=== PATIENT | female | born 1940 | race Caucasian/White ===

== ENCOUNTER 2016-12-20 14:43 | Emergency (ER) | payer OTHER ==
[2016-12-20 14:51] VITALS: BP 145/78; TEMP 97.6; BMI 20.3
--- NOTE | 2016-12-20 15:09 | ED.PDOC ---
General ED Provider: Dr. MARSHALL CLAIRE Chief Complaint: Bite Stated Complaint: bite Time Seen by Physician: 14:44 Mode of Arrival: Walk-In Information Source: Patient Exam Limitations: No limitations Primary Care Provider: LATONIA DE SOUZA Nursing and Triage Documentation Reviewed and Agree: Yes Trauma/Injury Complaint Exam - Bite Injury Complaint/Exam Location of Bite: right index Bite Occured: home Symptoms Are: Still present Type of Bite: Reports: Human Initial Severity: Mild Current Severity: None Aggravating: Reports: None Alleviating: Reports: None Associated Signs and Symptoms: Denies: Fever, Erythema, Drainage, Swelling, Lymphadenopathy, Numbness, Tingling, Limited ROM Review of Systems - Review Of Systems Constitutional: Reports: No symptoms Eyes: Reports: No symptoms Ears, Nose, Mouth, Throat: Reports: No symptoms Respiratory: Reports: No symptoms Cardiac: Reports: No symptoms GI: Reports: No symptoms : Reports: No symptoms Musculoskeletal: Reports: No symptoms Skin: Reports: No symptoms Neurological: Reports: No symptoms Endocrine: Reports: No symptoms Hematologic/Lymphatic: Reports: No symptoms All Other Systems: Reviewed and Negative Past Medical History - Past Medical History Previously Healthy: Yes Endocrine: Reports: None Cardiovascular: Reports: None Respiratory: Reports: None Hematological: Reports: None Gastrointestinal: Reports: None Genitourinary: Reports: None Neuro/Psych: Reports: None Musculoskeletal: Reports: None Cancer: Reports: None Last Menstrual Period: N/A - Surgical History General Surgical History: Reports: None - Family History Family History: Reports: None - Social History Smoking Status: Former smoker Hx Substance Use: No Alcohol Screening: Occasionally - Immunizations Tetanus Shot up to Date: No Physical Exam - Physical Exam Appearance: Well-appearing, No pain distress, Well-nourished Eyes: GURINDER, EOMI, Conjunctiva clear ENT: Ears normal, Nose normal, Oropharynx normal Respiratory: Airway patent, Breath sounds clear, Breath sounds equal, Respirations nonlabored Cardiovascular: RRR, Pulses normal, No rub, No murmur GI/: Soft, Nontender, No masses, Bowel sounds normal, No Organomegaly Musculoskeletal: Normal strength, ROM intact, No edema, No calf tenderness Skin: Warm, Dry, Normal color Neurological: Sensation intact, Motor intact, Reflexes intact, Cranial nerves intact, Alert, Oriented Psychiatric: Affect appropriate, Mood appropriate Critical Care Note - Critical Care Note Total Time (mins): 0 Course - Course Vital Signs: Temp Pulse Resp BP Pulse Ox 12/20/16 14:44 97.6 F 70 20 145/78 H 95 Departure - Departure Time of Disposition: 15:08 Disposition: HOME SELF-CARE Discharge Problem: Bite wound Instructions: Animal Bite (ED) Condition: Good Pt referred to PMD for follow-up: No Additional Instructions: Please call your Family Physician as soon as possible to schedule a follow-up appointment. Allergies/Adverse Reactions: Allergies No Known Allergies Allergy (Unverified 01/24/14 14:07) Home Medications: Ambulatory Orders Aspirin [Aspirin EC] 81 mg PO DAILYWM 01/24/14 Losartan/Hydrochlorothiazide [Hyzaar 50-12.5 Tablet] 1 tab PO MOWEFR 01/24/14 Bisoprolol Fumarate/Hctz [Ziac 10-6.25 mg] 0.5 tab PO DAILY 12/20/16 Chlordiazepoxide HCl [Librium] 10 mg PO BID 12/20/16 Minoxidil 10 mg PO DAILY 12/20/16
[2016-12-20] MEDS ORDERED: TENIVAC IM ONE (15:12)
== END 2016-12-20 15:29 | disposition home or self-care (01) ==
LOC: ED 14:43
DX: S61.250A Open bite of right index finger without damage to nail, initial encounter (principal); W64.XXXA Exposure to other animate mechanical forces, initial encounter
CPT/HCPCS: 90471; 99282

== ENCOUNTER 2017-09-01 12:09 | Emergency (ER) | payer OTHER ==
[2017-09-01 12:27] VITALS: BP 163/88; TEMP 97.8; BMI 20.9
--- NOTE | 2017-09-01 12:37 | ED.PDOC ---
General ED Provider: Dr. MARSHALL CLAIRE Chief Complaint: Head Injury Stated Complaint: HEAD INJURY 1 DAY AGO Time Seen by Physician: 12:10 (NO LOC. DAVIE AT BED SIDE AT ALL TIMES . DENIED OTHER INJURIES ) Mode of Arrival: Walk-In Information Source: Patient Exam Limitations: No limitations Primary Care Provider: LATONIA DE SOUZA Nursing and Triage Documentation Reviewed and Agree: Yes Reviewed sepsis parameters & appropriate labs ordered?: Yes System Inflammatory Response Syndrome: Not Applicable Sepsis Protocol: For patient's 13 years and over: Temp is 96.8 and below OR 101 and greater Pulse >90 BPM Resp >20/minute Acutely Altered Mental Status Are patient's symptoms suggestive of a new infection, such as: -Pneumonia -Skin, Soft Tissue -Endocarditis -UTI -Bone, Joint Infection -Implantable Device -Acute Abdominal Infection -Wound Infection -Meningitis -Blood Stream Catheter Infection -Unknown System Inflammatory Response Syndrome: Not Applicable Trauma/Injury Complaint Exam - Head Injury Complaint/Exam Location of Pain: Reports: Scalp Mechanism of Injury: Reports: Trauma (BLUNT FORCE) Onset/Duration: 1 DAY AGO NO LOC Symptoms Are: Resolved Initial Severity: Mild Current Severity: None Aggravating: Reports: None Alleviating: Reports: None Associated Signs and Symptoms: Reports: Neck pain. Denies: Confusion, Memory loss, Seizure, Epistaxis, Dental malocclusion, Nausea, Vomiting Loss of Consciousness: None SDH Risk Factors: Present: Elderly, Recent trauma Cervical Spine Injury Risk Factors: Present: Evidence of intoxication, Altered LOC, Focal neuro deficit, Distracting injuries Related Surgical History: Reports: None Immobilization Removed Post Exam: No Head Injury Findings: Present: Normal findings Glascow Coma Scale (see protocol): 15 Focal Weakness: Present: None Focal Sensory Loss: Present: None Gait: Normal Gag Reflex Present: No Nexus Low Risk Criteria: No evidence of intoxicat., No Altered LOC, No focal neuro deficit Differential Diagnoses: Sprain, Strain Review of Systems - Review Of Systems Constitutional: Reports: No symptoms Eyes: Reports: No symptoms Ears, Nose, Mouth, Throat: Reports: No symptoms Respiratory: Reports: No symptoms Cardiac: Reports: No symptoms GI: Reports: No symptoms : Reports: No symptoms Musculoskeletal: Reports: Neck pain (STATED TO BE STIFF ) Skin: Reports: No symptoms Neurological: Reports: Headache Endocrine: Reports: No symptoms Hematologic/Lymphatic: Reports: No symptoms All Other Systems: Reviewed and Negative Past Medical History - Past Medical History Previously Healthy: Yes Endocrine: Reports: None Cardiovascular: Reports: None Respiratory: Reports: None Hematological: Reports: None Gastrointestinal: Reports: None Genitourinary: Reports: None Neuro/Psych: Reports: None Musculoskeletal: Reports: None Cancer: Reports: None Last Menstrual Period: unknown - Surgical History General Surgical History: Reports: None - Family History Family History: Reports: None - Social History Smoking Status: Former smoker, Never smoker Hx Substance Use: No Alcohol Screening: Occasionally Physical Exam - Physical Exam Appearance: Well-appearing, No pain distress, Well-nourished Eyes: GURINDER, EOMI, Conjunctiva clear ENT: Ears normal, Nose normal, Oropharynx normal Respiratory: Airway patent, Breath sounds clear, Breath sounds equal, Respirations nonlabored Cardiovascular: RRR, Pulses normal, No rub, No murmur GI/: Soft, Nontender, No masses, Bowel sounds normal, No Organomegaly Musculoskeletal: Normal strength, ROM intact, No edema, No calf tenderness Skin: Warm, Dry, Normal color Neurological: Sensation intact, Motor intact, Reflexes intact, Cranial nerves intact, Alert, Oriented Psychiatric: Affect appropriate, Mood appropriate Interpretation - Radiology Interpretation Radiology Interpretation By: Radiologist Critical Care Note - Critical Care Note Total Time (mins): 0 Course - Course Orders, Labs, Meds: Orders Category Date Time Status CT CERVICAL SPINE W/O CONTRAST Stat RADS 09/01/17 12:[address] HEAD W/O CONTRAST Stat RADS 09/01/17 12:34 Completed Vital Signs: Temp Pulse Resp BP Pulse Ox 09/01/17 12:10 97.8 F 62 20 163/88 H 95 Departure - Departure Time of Disposition: 14:23 Disposition: HOME SELF-CARE Discharge Problem: Injury of head, Head and neck injury Instructions: Head Injury (ED) Condition: Good Pt referred to PMD for follow-up: Yes IPMP verified?: Yes Additional Instructions: Please call your Family Physician as soon as possible to schedule a follow-up appointment. Allergies/Adverse Reactions: Allergies Latex, Natural Rubber Adverse Reaction (Verified 09/01/17 12:22) Home Medications: Ambulatory Orders Aspirin [Aspirin EC] 81 mg PO DAILYWM 01/24/14 Losartan/Hydrochlorothiazide [Hyzaar 50-12.5 Tablet] 1 tab PO MOWEFR 01/24/14 Bisoprolol Fumarate/Hctz [Ziac 10-6.25 mg] 0.5 tab PO DAILY 12/20/16 Chlordiazepoxide HCl [Librium] 10 mg PO BID PRN 12/20/16 Minoxidil 10 mg PO DAILY 12/20/16 Levothyroxine Sodium [Synthroid] 25 mcg PO DAILY 09/01/17 Disposition Discussed With: Patient
--- NOTE | 2017-09-01 13:49 | CT ---
EXAM: CT BRAIN HISTORY: Head trauma TECHNIQUE: CT brain without intravenous contrast. 5-mm axial sections with Reformations. COMPARISON: None FINDINGS: There is generalized atrophy. There is mild to moderate periventricular and deep white matter low att enuation which although nonspecific is suggestive of chronic microvascular ischemic change. Basal ga nglia calcification is noted. Brain otherwise is unremarkable without evidence of hemorrhage or large vessel distribution recent is chemic infarction. There is no suggestion of acute hydrocephalus or subdural fluid collection. No m ass or mass effect. Cranium is within normal limits. Mastoid processes are aerated. The visualized paranasal sinuses a re clear. IMPRESSION: No acute intracranial process or injury identified. No skull fracture.
--- NOTE | 2017-09-01 13:55 | CT ---
EXAM: CT cervical spine. HISTORY: Injury, pain . TECHNIQUE: CT cervical spine without contrast. Detailed axial sections. Coronal and sagittal re-fo rmations. COMPARISON: None FINDINGS: No acute fracture or subluxation is identified. There is moderately severe degenerative change of th e cervical spine most apparent at C1/C2 and C5/C6. At the C5/C6, there is mild to moderate central c anal stenosis and at least mild bilateral neural foraminal narrowing. Lateral masses of C1 and C2 are normally aligned and the odontoid process is intact. No paraspinal hematoma. Incidental note of biapical pleuroparenchymal thickening suggesting fibrosis. There is also an indeterminate 3.7 mm ri ght apical pulmonary nodule. IMPRESSION: 1. No acute fracture or subluxation. 2. Degenerative changes of the spine. 3. Right upper lobe pulmonary nodule measuring 3.7 mm. Consider follow-up CT thorax.
== END 2017-09-01 14:30 | disposition home or self-care (01) ==
LOC: ED 12:09
DX: S09.90XA Unspecified injury of head, initial encounter (principal); S19.9XXA Unspecified injury of neck, initial encounter; W22.8XXA Striking against or struck by other objects, initial encounter
CPT/HCPCS: 99283

== ENCOUNTER 2017-09-18 07:47 | Outpatient (CLI) ==
--- NOTE | 2017-09-18 09:27 | CT ---
Exam: CT of the chest with contrast History: Pulmonary nodule Technique: [address] of the chest following intravenous contrast FINDINGS: The reference study is a cervical spine CT dated 09/01/2017 showing a right upper lobe nodu le. Again, dense right upper lobe nodule measures about 3 mm diameter. No additional nodules, racheal s or infiltrates. Minor scattered pleural parenchymal scarring. Atherosclerotic calcification of th e aorta without aneurysm. No mediastinal lymphadenopathy. Granulomatous lymph node calcifications mo stly in the right hilum. No acute chest wall abnormalities. Impression: 1. Stable right upper lobe nodule measuring 3 mm diameter and at least partially calcified. Benigni ty is strongly favored. Consensus recomendations for nodule 6mm or less: Low Risk patient, no follow-up needed. High Risk patient, Optional follow-up CT at 12 mo 2. Atherosclerotic vascular calcifications.
--- NOTE | 2017-09-18 09:28 | MAMMO ---
EXAM: Bilateral digital screening mammogram (2-D and 3-D) History: Screening Comparison: Bilateral mammogram 02/23/2016 Findings: MLO and CC views of bilateral breasts demonstrate scattered fibroglandular breast parenchy ma. CAD was reviewed by the radiologist. Tomosynthesis was performed. Stable benign bilateral zoya st calcifications. There are no dominant masses, no suspicious microcalcifications and no architectu ral distortions. Impression: Benign stable mammogram. Recommend followup routine screening mammography in 1 year. BIRADS 2
== END 2017-09-18 07:48 | disposition home or self-care (01) ==
LOC: RAD 07:47
PROVIDERS: ATTEND Internal Medicine
DX: Z12.31 Encounter for screening mammogram for malignant neoplasm of breast (principal); R91.1 Solitary pulmonary nodule
CPT/HCPCS: 36415; 77067; 82565

== ENCOUNTER 2018-02-26 15:15 | Outpatient (CLI) ==
--- NOTE | 2018-02-26 15:56 | DI ---
EXAM: Single view of the pelvis. History: Pelvic pain and bilateral hip pain. Findings: No acute fracture or dislocation. Bilateral hip joint spaces are preserved. Degenerative changes in the lower lumbar spine. Impression: No acute osseous abnormalities
--- NOTE | 2018-02-26 15:57 | DI ---
EXAM: Two views of the left hip. History: Left hip pain. Findings: No acute fracture or dislocation. Left hip joint space is preserved. Impression: No acute osseous abnormality
== END 2018-02-26 15:16 | disposition home or self-care (01) ==
LOC: RAD 15:15
PROVIDERS: ATTEND Internal Medicine
DX: M25.552 Pain in left hip (principal); W19.XXXA Unspecified fall, initial encounter

== ENCOUNTER 2018-04-09 09:09 | Day surgery (SDC) | payer OTHER ==
[2018-04-09] MEDS ORDERED: LIDOCAINE 1% 20 ML MDV ID STA (10:02)
[2018-04-09 10:09] VITALS: TEMP 97.1
[2018-04-09] MEDS ORDERED: DIPRIVAN 20 ML VIAL IVP ONE (11:45)
[2018-04-09] MEDS ORDERED: VERSED ONE (11:45)
[2018-04-09 13:49] VITALS: BP 123/67
--- NOTE | 2018-04-10 13:39 | OP ---
PROCEDURE: COLONOSCOPY TO THE CECUM. ENDOSCOPIST: Luis BACH M.D. INDICATION: SCREENING. INSTRUMENT: FH-190. MEDICATION: PER ANESTHESIA. PROCEDURE: The patient was positioned for colonoscopy. The digital rectal exam was negative. The colonoscope was inserted through the anus and advanced to the cecum. The cecum was identified using the ileocecal valve and the appendiceal orifice as landmarks. The scope was slowly withdrawn through an adequately prepped colon. Freedom Bowel Prep Score = 9. Diverticulosis in the left colon. The exam was otherwise normal. Retroflex exam otherwise normal. Withdrawal time 7 minutes and 37 seconds. PLAN: 1. Repeat exam on an as needed basis. cc: Dr. Guanaco DAWSON
== END 2018-04-09 12:50 | disposition home or self-care (01) ==
LOC: SURG 09:09
PROVIDERS: ATTEND Internal Medicine Gastroenterology
DX: Z12.11 Encounter for screening for malignant neoplasm of colon (principal)
CPT/HCPCS: 00812; G0121

== ENCOUNTER 2018-09-21 08:36 | Outpatient (CLI) ==
--- NOTE | 2018-09-21 11:01 | MAMMO ---
EXAM: Bilateral digital screening mammogram (2-D and 3-D) History: Screening Comparison: Bilateral mammogram 09/18/2017 Findings: MLO and CC views of bilateral breasts demonstrate scattered fibroglandular breast parenchy ma. CAD was reviewed by the radiologist. Tomosynthesis was performed. Stable benign bilateral zoya st calcifications. There are no dominant masses, no suspicious microcalcifications and no architectu ral distortions Impression: Benign stable mammogram. Recommend followup routine screening mammography in 1 year. BIRADS 2, benign
== END 2018-09-21 08:37 | disposition home or self-care (01) ==
LOC: RAD 08:36
PROVIDERS: ATTEND Internal Medicine
DX: Z12.31 Encounter for screening mammogram for malignant neoplasm of breast (principal)

== ENCOUNTER 2018-09-29 15:12 | Inpatient (IN) | payer OTHER ==
--- NOTE | 2018-09-29 15:44 | ED.PDOC ---
General ED Provider: Dr. SRINI FRIEND Chief Complaint: Respiratory Complaint Stated Complaint: Patient was diagnosed with bronchitis given steroids which gave her diarrhea, She states she has pain when she takes a breath. Time Seen by Physician: 15:37 Mode of Arrival: Walk-In Information Source: Patient Exam Limitations: No limitations Primary Care Provider: LATONIA DE SOUZA Nursing and Triage Documentation Reviewed and Agree: Yes Does patient meet sepsis criteria?: No System Inflammatory Response Syndrome: Not Applicable Sepsis Protocol: For patient's 13 years and over: Temp is 96.8 and below OR 101 and greater Pulse >90 BPM Resp >20/minute Acutely Altered Mental Status Are patient's symptoms suggestive of a new infection, such as: -Pneumonia -Skin, Soft Tissue -Endocarditis -UTI -Bone, Joint Infection -Implantable Device -Acute Abdominal Infection -Wound Infection -Meningitis -Blood Stream Catheter Infection -Unknown Cardiovascular Complaint Exam - Chest Pain Complaint/Exam Onset: Gradual Duration: 2 days Symptoms Are: Still present Timing: Constant Length of Chest Pain Episodes: only with cough Initial Severity: Moderate Current Severity: Moderate Location: Reports: Discrete, Left anterior Pain Radiates: Reports: None Character: Reports: Tightness, Sharp, Stabbing Aggravating: Reports: Movement, Deep breaths Alleviating: Reports: None Associated Signs and Symptoms: Reports: Cough, Short of air. Denies: Diaphoresis, Nausea, Vomiting, Fever, Palpitations, Hemoptysis, Back pain, Abdominal pain, Dizziness, Calf pain, Calf swelling Related Surgical History: Reports: None History of Healthcare-Acquired Pneumonia: Reports: No AMI/ACS Risk Factors: Reports: None TAD Risk Factors: Reports: None Pulmonary Embolism Risk Factors: Reports: None Prior Care for this Complaint: No Recent Stress Test: No Recent Echo/LV Function: No JVD Present: No Subcutaneous Emphysema Present: No Diminshed Breath Sounds: Yes Reproducible Chest Wall Pain: No Bilateral Pulses Present: No Unequal Pulses Noted: No If Risk Factors for AMI/ACS Consider: EKG, Cardiac Enzymes, Serial Studies Documents Reviewed: Medical records, Labs, Imaging, EKG Content Development Manager Consulted: No Review of Systems - Review Of Systems Constitutional: Reports: No symptoms Eyes: Reports: No symptoms Ears, Nose, Mouth, Throat: Reports: No symptoms Respiratory: Reports: Cough, Short of air, Wheezing Cardiac: Reports: Chest pain GI: Reports: No symptoms : Reports: No symptoms Musculoskeletal: Reports: No symptoms Skin: Reports: No symptoms Neurological: Reports: Anxiety Endocrine: Reports: No symptoms Hematologic/Lymphatic: Reports: No symptoms All Other Systems: Reviewed and Negative Past Medical History - Past Medical History Previously Healthy: Yes Endocrine: Reports: Hypothyroid Cardiovascular: Reports: Hypertension Respiratory: Reports: COPD (non smoker ), Bronchitis Hematological: Reports: None Gastrointestinal: Reports: None Genitourinary: Reports: None Neuro/Psych: Reports: Anxiety Musculoskeletal: Reports: None Cancer: Reports: None Last Menstrual Period: n/a - Surgical History General Surgical History: Reports: None - Family History Family History: Reports: None - Social History Smoking Status: Never smoker Hx Substance Use: No Alcohol Screening: Occasionally Physical Exam - Physical Exam Appearance: Ill-appearing Ill-appearing: Moderate Pain Distress: Severe Eyes: GURINDER, EOMI Neck: Supple Respiratory: Airway patent, Rhonchi Cardiovascular: RRR, Pulses normal GI/: Soft, Nontender Musculoskeletal: Normal strength, ROM intact, No edema, No calf tenderness Skin: Warm Neurological: Alert, Oriented Psychiatric: Anxious Interpretation - Radiology Interpretation Radiology Interpretation By: Radiologist Radiology Results: Positive (basilar atelectatis vs Pneumoina. NO PE) Exam Interpreted: CT Scan Radiology Interpretation By: Radiologist Radiology Results: Negative Exam Interpreted: Portable CXR - Senior Technical Architect Rate: Normal Rhythm: Sinus - EKG Interpretation Time of EKG #1: 16:05 Rate: Ronny Rhythm: Sinus Ectopy: PVCs [place]: NL ST Segment: Normal Interpretation: Marked sinus bradycardia. Time of EKG #2: 20:01 Rate: Normal Rhythm: Sinus Ectopy: PVCs [place]: NL ST Segment: Normal EKG Interpretation: no ischemic changes. Re-Evaluation - Re-Evaluation Time of Re-Evaluation: 19:12 Status: Improved Vital Signs Stable: Yes Pain Level: better Appearance: NAD Lungs: Other (sacattared rhonchi) Physician Notification - Case Discussed Physician Notified: De Souza Time of Notification: 19:51 (ok to admit ) Critical Care Note - Critical Care Note Total Time (mins): 55 Course - Course Hematology/Chemistry: 10/01/18 04:50 10/01/18 04:50 Orders, Labs, Meds: Lab Review 09/29/18 09/29/18 09/29/18 15:50 16:00 16:00 WBC 4.25 L RBC 4.19 L Hgb 13.2 Hct 39.6 MCV 94.5 MCH 31.5 H MCHC 33.3 RDW Coeff of Agustín 12.3 Plt Count 94 L Neutrophils % (Manual) 70.0 Band Neutrophils % 2.0 Lymphocytes % (Manual) 19.0 Monocytes % (Manual) 5.0 Reactive Lymphocytes 4.0 Clumped Platelets 2 Anisocytosis Not present RBC Morph Comment Normal D-Dimer (Manual) Puncture Site Rb O2 Saturation 93.0 L ABG pH 7.430 ABG pCO2 35.0 ABG pO2 63.0 L ABG HCO3 23.2 ABG Total CO2 24 ABG Base Excess -1 FiO2 % 21.0 Sodium 132.3 L Potassium 4.10 Chloride 95.6 L Carbon Dioxide 26.5 Anion Gap 14.30 BUN 15.2 Creatinine 0.77 Estimated GFR (MDRD) 73.00 BUN/Creatinine Ratio 19.74 Glucose 99.6 Lactic Acid Calcium 9.06 Total Bilirubin 0.35 AST 50.0 H ALT 25.2 Alkaline Phosphatase 124.8 Total Creatine Kinase 130.7 CK-MB (CK-2) 3.750 H CK-MB (CK-2) % 2.8600 Troponin I < 0.012 NT-Pro-B Natriuret Pep Total Protein 8.03 Albumin 4.43 Globulin 3.60 Albumin/Globulin Ratio 1.23 Procalcitonin 09/29/18 09/29/18 09/29/18 16:00 16:00 16:00 WBC RBC Hgb Hct MCV MCH MCHC RDW Coeff of Agustín Plt Count Neutrophils % (Manual) Band Neutrophils % Lymphocytes % (Manual) Monocytes % (Manual) Reactive Lymphocytes Clumped Platelets Anisocytosis RBC Morph Comment D-Dimer (Manual) 950.35 Puncture Site O2 Saturation ABG pH ABG pCO2 ABG pO2 ABG HCO3 ABG Total CO2 ABG Base Excess FiO2 % Sodium Potassium Chloride Carbon Dioxide Anion Gap BUN Creatinine Estimated GFR (MDRD) BUN/Creatinine Ratio Glucose Lactic Acid 0.74 Calcium Total Bilirubin AST ALT Alkaline Phosphatase Total Creatine Kinase CK-MB (CK-2) CK-MB (CK-2) % Troponin I NT-Pro-B Natriuret Pep Total Protein Albumin Globulin Albumin/Globulin Ratio Procalcitonin < 0.05 09/29/18 09/29/18 19:25 19:25 WBC RBC Hgb Hct MCV MCH MCHC RDW Coeff of Agustín Plt Count Neutrophils % (Manual) Band Neutrophils % Lymphocytes % (Manual) Monocytes % (Manual) Reactive Lymphocytes Clumped Platelets Anisocytosis RBC Morph Comment D-Dimer (Manual) Puncture Site O2 Saturation ABG pH ABG pCO2 ABG pO2 ABG HCO3 ABG Total CO2 ABG Base Excess FiO2 % Sodium 132.5 L Potassium 3.98 Chloride 97.7 L Carbon Dioxide 26.6 Anion Gap 12.18 BUN 16.8 Creatinine 0.76 Estimated GFR (MDRD) 74.00 BUN/Creatinine Ratio 22.10 Glucose 108.3 H Lactic Acid Calcium 8.91 Total Bilirubin AST ALT Alkaline Phosphatase Total Creatine Kinase CK-MB (CK-2) CK-MB (CK-2) % Troponin I NT-Pro-B Natriuret Pep 1370.000 H Total Protein Albumin Globulin Albumin/Globulin Ratio Procalcitonin Orders Category Date Time Status ABG DRAW REQUEST Routine CARDIO 09/29/18 15:50 Completed EKG-(ED ONLY) Stat CARDIO 09/29/18 15:45 Completed NEBULIZER TREATMENT Stat CARDIO 09/29/18 16:26 Completed NPO REMINDER: IMAGING ONCE CARE 09/29/18 17:49 Completed ED AIRCRAFT MAINTENANCE ENGINEER APPLIED .ONCE EMERGENCY 09/29/18 15:45 Active ED IV/MEDIPORT/POWERPORT .ONCE EMERGENCY 09/29/18 15:45 Active ABG Stat LAB 09/29/18 15:50 Completed BLOOD CULTURE (ED ONLY) Stat LAB 09/29/18 16:00 Results BMP [BASIC METABOLIC PANEL] Stat LAB 09/29/18 19:25 Completed CBC W/ AUTO DIFF Stat LAB 09/29/18 16:00 Completed COMPREHENSIVE METABOLIC PANEL Stat LAB 09/29/18 16:00 Completed CREATINE KINASE Stat LAB 09/29/18 16:00 Completed D-DIMER Stat LAB 09/29/18 16:00 Completed LACTIC ACID Stat LAB 09/29/18 16:00 Completed MANUAL DIFFERENTIAL Stat LAB 09/29/18 16:00 Completed PROCALCITONIN Stat LAB 09/29/18 16:00 Completed TROPONIN I Stat LAB 09/29/18 16:00 Completed 0.9 % Sodium Chloride [Saline Flush] MEDS 09/29/18 15:45 Discontinued 1 syr IVF PRN PRN Azithromycin [Zithromax] MEDS 09/29/18 19:31 Discontinued 500 mg PO ONCE STA Ceftriaxone Sodium [Rocephin] 1 gm MEDS 09/29/18 19:31 Discontinued 0.9 % Sodium Chloride [Sodium Chloride] 50 ml IV ONCE Ipratropium/Albuterol Neb [Duoneb] MEDS 09/29/18 16:26 Discontinued 1 vial NEB ONCE STA Morphine Sulfate [Morphine 4 mg/ml Syringe] MEDS 09/29/18 15:45 Discontinued 2 mg IVP ONCE STA Ondansetron HCl/Pf [Zofran 4 mg/2 ml] MEDS 09/29/18 15:45 Discontinued 4 mg IVP ONCE STA CHEST, 2 VIEWS PA & LAT Stat RADS 09/29/18 15:44 Completed CTA ANGIO CHEST Stat RADS 09/29/18 17:48 Completed Medications Discontinued Medications Generic Name Dose Route Start Last Admin Trade Name Freq PRN Reason Stop Dose Admin Albuterol/Ipratropium 1 vial 09/29/18 16:26 09/29/18 16:32 Duoneb NEB 09/29/18 16:27 1 vial ONCE STA Administration Albuterol/Ipratropium 1 vial 09/29/18 20:00 10/01/18 14:54 Duoneb NEB Not Given RTQID NEAL Albuterol/Ipratropium 1 vial 09/29/18 19:36 Duoneb NEB RTQ4H PRN Wheezing Amlodipine Besylate 5 mg 09/30/18 09:00 10/01/18 09:18 Norvasc PO 5 mg DAILY NEAL Administration Azithromycin 500 mg 09/29/18 19:31 09/29/18 19:43 Zithromax PO 09/29/18 19:32 500 mg ONCE STA Administration Azithromycin 250 mg 09/30/18 19:44 10/01/18 09:19 Zithromax PO 10/03/18 09:01 250 mg DAILY NEAL Administration Calcium/Vitamin D 1 each 09/30/18 09:00 10/01/18 09:18 Calcium 500 + Vit D 200 Mg Tablet PO 1 each DAILY NEAL Administration Chlordiazepoxide HCl 10 mg 09/29/18 21:00 10/01/18 09:20 Librium PO 10 mg BID NEAL Administration Enoxaparin Sodium 40 mg 09/30/18 09:00 10/01/18 09:21 Lovenox SUBCUT 40 mg DAILY NEAL Administration Ceftriaxone Sodium 1 gm/ 50 mls @ 75 mls/hr 09/29/18 19:31 09/29/18 19:39 Sodium Chloride IV 09/29/18 20:10 75 mls/hr ONCE STA Administration Ceftriaxone Sodium 1 gm/ 50 mls @ 75 mls/hr 09/30/18 21:00 09/30/18 20:05 Sodium Chloride IV 10/03/18 20:59 75 mls/hr BEDTIME NEAL Administration Sodium Chloride 1,000 mls @ 100 mls/hr 09/29/18 20:00 Sodium Chloride IV .Q10H NEAL Sodium Chloride 1,000 mls @ 135 mls/hr 09/29/18 20:00 09/29/18 20:32 Sodium Chloride IV 135 mls/hr .Q7H25M NEAL Administration Sodium Chloride 1,000 mls @ 100 mls/hr 09/29/18 22:00 10/01/18 05:45 Sodium Chloride IV Not Given .Q10H NEAL Ketorolac Tromethamine 30 mg 09/30/18 02:00 09/30/18 05:00 Toradol IVP 10/01/18 21:00 30 mg Q8H NEAL Administration Ketorolac Tromethamine 30 mg 09/30/18 13:00 10/01/18 13:00 Toradol IVP 10/01/18 21:00 Not Given Q8HR NEAL Levothyroxine Sodium 25 mcg 09/30/18 07:30 10/01/18 05:45 Synthroid PO 25 mcg QDAC NEAL Administration Methylprednisolone Sodium Succinate 125 mg 09/29/18 21:00 10/01/18 05:11 Solu-Medrol 125 Mg IVP 125 mg Q8HR NEAL Administration Methylprednisolone Sodium Succinate 125 mg 09/29/18 19:57 09/29/18 20:02 Solu-Medrol 125 Mg IVP 09/29/18 19:58 125 mg ONCE STA Administration Morphine Sulfate 2 mg 09/29/18 15:45 09/29/18 17:14 Morphine 4 Mg/Ml Syringe IVP 09/29/18 15:46 2 mg ONCE STA Administration Morphine Sulfate 2 mg 09/29/18 19:36 Morphine 2 Mg/Ml Syringe IVP Q4H PRN Severe Pain Nebivolol 2.5 mg 09/30/18 09:00 10/01/18 09:21 Bystolic PO 2.5 mg DAILY NEAL Administration Olmesartan 40 mg 09/30/18 09:00 10/01/18 09:20 Benicar PO 40 mg DAILY NEAL Administration Ondansetron HCl 4 mg 09/29/18 15:45 09/29/18 16:46 Zofran 4 Mg/2 Ml IVP 09/29/18 15:46 4 mg ONCE STA Administration Ondansetron HCl 4 mg 09/29/18 19:36 Zofran 4 Mg/2 Ml IVP Q6H PRN Nausea / Vomiting Prednisone 20 mg 10/02/18 08:00 Prednisone PO DAILYWM NEAL Sodium Chloride 1 syr 09/29/18 15:45 09/29/18 19:42 Saline Flush IVF 1 syr PRN PRN Administration To flush IV Vital Signs: Temp Pulse Resp BP Pulse Ox 09/29/18 19:18 78 22 116/66 96 09/29/18 18:26 99.6 F 83 18 125/58 L 94 L 09/29/18 15:12 100.3 F H 78 20 131/78 95 KIER Risk Score Age >/= 65: Yes >/= 3 CAD Risk Factors: No Known CAD (Stenosis >/= 50%): No ASA Use in Past 7 Days: No Severe Angina (>/= 2 episodes in 24 hours): No EKG ST Changes >/= 0.5mm: No Postive Cardiac Marker: No IKER Total Score: 1 IKER Risk Score: Risk Score Odds of by 30D 0 0.1 (0.1-0.2) 1 0.3 (0.2-0.3) 2 0.4 (0.3-0.5) 3 0.7 (0.6-0.9) 4 1.2 (1.0-1.5) 5 2.2 (1.9-2.6) 6 3.0 (2.5-3.6) 7 4.8 (3.8-6.1) Departure - Departure Time of Disposition: 20:07 Disposition: ADMITTED INPATIENT Discharge Problem: Bronchitis Pneumonia Qualifiers: Pneumonia type: due to unspecified organism Laterality: bilateral Lung location : lower lobe of lung Qualified Code(s): J18.1 - Lobar pneumonia, unspecified organism Chest pain Qualifiers: Chest pain type: chest pain on breathing Qualified Code(s): R07.1 - Chest pain on breathing Condition: Stable Pt referred to PMD for follow-up: No IPMP verified?: No Allergies/Adverse Reactions: Allergies Latex, Natural Rubber Adverse Reaction (Verified 09/01/17 12:22) Home Medications: Ambulatory Orders Calcium Carbonate/Vitamin D3 [Os-Fran 500+D3 Caplet] 1 each PO DAILY 04/06/18 Amlodipine Bes/Olmesartan Med [Leanne 5-40 Mg Tablet] 1 each PO DAILY 08/22/18 Chlordiazepoxide HCl 10 mg PO BID 09/29/18 Levothyroxine Sodium [Synthroid] 25 mcg PO DAILY 09/29/18 Nebivolol HCl [Bystolic] 2.5 mg PO DAILY 09/29/18 Albuterol Sulfate 0.083% Neb [Albuterol 0.083% Neb] 1 vial NEB RTQ6H #120 vial.neb 10/01/18 Cephalexin [Keflex] 500 mg PO Q8HR #15 capsule 10/01/18 Prednisone 20 mg PO DAILYWM #5 tablet 10/01/18 Disposition Discussed With: Patient, Family
[2018-09-29] MEDS ORDERED: MORPHINE 4 MG/ML SYRINGE IVP STA (15:45)
[2018-09-29] MEDS ORDERED: ZOFRAN 4 MG/2 ML IVP STA (15:45)
--- NOTE | 2018-09-29 16:04 | DI ---
EXAM: Two view(s) chest. HISTORY: Cough. Rhonchi. Shortness of breath. COMPARISON: 01/24/2014 TECHNIQUE: Two view(s) of the chest. FINDINGS: Lungs: The lung voulmes are normal. The right hemidiaphragm slightly elevated. The lungs are clear without consolidation or effusion. There are no suspicious nodules. There is no pneumothorax. Cardiovascular: The heart size and pulmonary vasculature is normal.. The aorta is unremarkable. Emily/Mediastinum: Normal. Osseous structures. Normal for age. IMPRESSION: No acute pulmonary disease.
[2018-09-29] MEDS ORDERED: DUONEB NEB STA (16:26)
--- NOTE | 2018-09-29 18:51 | CT ---
Exam: CT angiography of the chest with intravenous contrast, PE protocol with 3-D MIP reformatted im ages. Comparison: CT chest performed 09/18/2017. Reason for exam: Chest pain, elevated D-dimer. FINDINGS: Similar appearing 3 mm right upper lobe nodule. No pneumothorax or pleural effusion. Pat reagan airspace opacities are seen in the lung bases. No main, proximal, or segmental pulmonary arteria l filling defects are seen. The aorta is normal in course and caliber. The heart is not enlarged an d not significantly changed from previous study. Degenerative changes are seen in the lower cervical and throughout the thoracic spine. No suspicious appearing osteoblastic or osteolytic lesions. Impression: 1. No main, proximal, or segmental pulmonary arterial filling defects. 2. Mild basilar atelectasis/pneumonia. 3. No pneumothorax or pleural effusion
[2018-09-29] MEDS ORDERED: ROCEPHIN 1 GM in SODIUM CHLORIDE 50 ML IV STA (19:31)
[2018-09-29] MEDS ORDERED: ZITHROMAX PO STA (19:31)
[2018-09-29] MEDS ORDERED: ROCEPHIN ONE (19:32)
[2018-09-29] MEDS ORDERED: ZOFRAN 4 MG/2 ML IVP PRN (19:36)
[2018-09-29] MEDS ORDERED: DUONEB NEB PRN (19:36)
[2018-09-29] MEDS ORDERED: MORPHINE 2 MG/ML SYRINGE IVP PRN (19:36)
[2018-09-29] MEDS ORDERED: SOLU-MEDROL 125 MG IVP STA (19:57)
[2018-09-29] MEDS ORDERED: SODIUM CHLORIDE 1,000 ML IV SCH ×2 (20:00)
[2018-09-29] MEDS: DUONEB NEB SCH (20:24)
[2018-09-29] MEDS: LIBRIUM PO SCH (20:31)
[2018-09-29] MEDS: SOLU-MEDROL 125 MG IVP SCH (20:33)
[2018-09-29 21:01] VITALS: BMI 20.6
[2018-09-30] MEDS ORDERED: TORADOL IVP SCH (02:00)
[2018-09-30] MEDS: DUONEB NEB SCH ×4 (04:55→19:50)
[2018-09-30] MEDS: SOLU-MEDROL 125 MG IVP SCH ×3 (04:59→20:03)
[2018-09-30] MEDS: SODIUM CHLORIDE 1,000 ML IV SCH ×2 (05:23→16:17)
[2018-09-30] MEDS: LIBRIUM PO SCH ×2 (08:10→20:04)
[2018-09-30] MEDS: BENICAR PO SCH (08:10)
[2018-09-30] MEDS: BYSTOLIC PO SCH (08:11)
[2018-09-30] MEDS: CALCIUM 500 + VIT D 200 MG TABLET PO SCH (08:11)
[2018-09-30] MEDS: SYNTHROID PO SCH (08:11)
[2018-09-30] MEDS: NORVASC PO SCH (08:11)
[2018-09-30] MEDS: LOVENOX SUBCUT SCH (08:13)
[2018-09-30] MEDS ORDERED: OLMESARTAN MED PO SCH (09:00)
[2018-09-30] MEDS ORDERED: NON-FORMULARY MEDICATION (Nebivolol Hcl [Bystolic] 2.5 MG) PO SCH (09:00)
[2018-09-30] MEDS ORDERED: AMLODIPINE BES PO SCH (09:00)
[2018-09-30] MEDS ORDERED: [UNRECOGNIZED DRUG - OTHER] PO SCH (09:00)
[2018-09-30] MEDS ORDERED: VITAMIN D3 PO SCH (09:00)
[2018-09-30] MEDS ORDERED: CALCIUM CARBONATE PO SCH (09:00)
[2018-09-30] MEDS: TORADOL IVP SCH ×2 (13:05→20:04)
[2018-09-30] MEDS: ZITHROMAX PO SCH (19:21)
[2018-09-30] MEDS ORDERED: ROCEPHIN 1 GM in SODIUM CHLORIDE 50 ML IV SCH (21:00)
[2018-10-01] MEDS: SODIUM CHLORIDE 1,000 ML IV SCH ×2 (02:12→05:45)
[2018-10-01] MEDS: DUONEB NEB SCH ×3 (04:48→14:54)
[2018-10-01] MEDS: SOLU-MEDROL 125 MG IVP SCH (05:11)
[2018-10-01] MEDS: TORADOL IVP SCH ×2 (05:14→13:00)
[2018-10-01] MEDS: SYNTHROID PO SCH (05:45)
--- NOTE | 2018-10-01 08:42 | PCM.PROG ---
Attending Provider: ATTENDING PROVIDER: Dr. LATONIA DE SOUZA DATE OF SERVICE: 10/01/18 SUBJECTIVE: This 78 year old WHITE/ F was hospitalized 09/29/18 with acute pneumonia/bronchitis. The patient had inhaled fumes from burning leave. She has no history of smoking. BNP and d-dimer is high. Chest CT angiogram is negative. No evidence of CHF both clinically and and on physical exam. REVIEW OF SYSTEMS: CONSTITUTIONAL: No night sweats. No fatigue, malaise, lethargy. No fever or chills. HEENT: Eyes: No visual changes. No eye pain. No eye discharge. ENT: No runny nose. No epistaxis. No sinus pain. No odynophagia. No congestion. RESPIRATORY: Coughing some, dry, no congestion. No hemoptysis. No shortness of breath. CARDIOVASCULAR: No angina symptoms. No CHF symptoms. No atypical chest pain for CAD. No palpitations. No orthopnea.. GASTROINTESTINAL: No abdominal pain. No nausea or vomiting. No diarrhea or constipation. No hematemesis. No hematochezia. GENITOURINARY: No urgency. No frequency. No dysuria. No hematuria. No obstructive symptoms. No discharge. No pain. No significant abnormal bleeding. MUSCULOSKELETAL: No musculoskeletal pain; no joint swelling. NEUROLOGICAL: Awake, alert, oriented to time, place and person. No headache. No neck pain. No syncope. No seizures. No dizziness. PSYCHIATRIC: Not anxious. No depression. No suicidal thoughts. No homicidal thoughts. SKIN: No rash. No lesions. No wounds. ENDOCRINE: No unexplained weight loss. No weight gain. HEMATOLOGIC/LYMPHATIC: No anemia. No purpura. No petechiae. No prolonged or excessive bleeding. No palpable lymph nodes. PHYSICAL EXAMINATION: GENERAL: The patient is awake, alert and oriented, lying in bed in no distress. VITAL SIGNS: Temperature 97.6 F, Pulse 73, Respiratory Rate 19, BP 143/79, Pulse Ox 96% HEENT: Head normocephalic, atraumatic. Eyes: Extraocular muscles are intact. Pupils are equal, round and reactive to light and accommodation. Ears: No lesions. Nose appeared normal. Throat: No exudate or erythema. NECK: Supple. No JVD, no carotid bruit. No lymphadenopathy or thyromegaly. LUNGS: Decreased breath sounds but clear to auscultation. Percussion note normal. Chest symmetrical. HEART: S1, S2, no S3. No murmurs. No cyanosis or clubbing. No ascites. Pulses: Dorsalis pedis and posterior tibial pulses +1 to +2 both sides. ABDOMEN: Soft. Non-tender. Bowel sounds active. No CVA tenderness. No mass felt. EXTREMITIES: No edema. Full range of motion of all extremities, equal. NEUROLOGIC: No focal deficit. Cranial nerves II through XII are grossly intact. No headache, no double vision or headache. SKIN: Warm and dry. Intact. Turgor-normal. LYMPHATIC: No palpable lymph nodes/no lymphedema. MUSCULOSKELETAL: Normal joints with no swelling. Muscle tone is normal. LAB REVIEW: 10/01/18 04:50 10/01/18 04:50 10/01/18 04:50: Sodium 135.9, Potassium 4.42, Chloride 103.6, Carbon Dioxide 23.2, Anion Gap 13.52, BUN 16.7, Creatinine 0.59 L, Estimated GFR (MDRD) 99.00, BUN/Creatinine Ratio 28.30, Glucose 131.4 H, Calcium 8.64, Total Bilirubin 0.14 L, AST 31.4, ALT 21.5, Alkaline Phosphatase 116.4, Total Protein 6.56, Albumin 3.44 L, Globulin 3.12, Albumin/Globulin Ratio 1.10 10/01/18 04:50: WBC 5.37, RBC 3.73 L, Hgb 11.9 L, Hct 35.6 L, MCV 95.4, MCH 31.9 H, MCHC 33.4, RDW Coeff of Agustín 12.6, Plt Count 91 L, Immature Gran % (Auto ) 0.2, Neut % (Auto) 82.3, Lymph % (Auto) 12.7, [place] % (Auto) 4.8, Eos % (Auto) 0.0, Baso % (Auto) 0.0, Immature Gran # (Auto) 0.0, Neut # (Auto) 4.1, Lymph # ( Auto) 0.6, [place] # (Auto) 0.2 L, Eos # (Auto) 0.0, Baso # (Auto) 0.0, Neutrophils % (Manual) 83.0 H, Lymphocytes % (Manual) 11.0, Monocytes % (Manual ) 4.0, Metamyelocytes % 2.0, Anisocytosis Not present 10/01/18 04:24: Puncture Site Rb, O2 Saturation 91.0 L, ABG pH 7.352, ABG pCO2 40.8, ABG pO2 64.0 L, ABG HCO3 22.6, ABG Total CO2 24, ABG Base Excess -3 L, Bobby Test +, FiO2 % 21.0 09/30/18 10:44: Total Creatine Kinase 77.2, Troponin I < 0.012 ASSESSMENT: Please see below. 1. Acute bronchitis/pneumonitis could be asthma 2. Hypertension PLAN: 1. Discharge the patient home. 2. Wants NEBS 3. Antibiotics 3. Steroids 4. PFT 5. Had some PAC and PVC 6. Holter 7. Echocardiogram to evaluate LV function because of high BNP and history of severe hypertension 8. Carotid scan SCRIBED BY: GRAHAM FLORES, Biotech Production Specialist scribed while in presence of service performed by Dr. LATONIA DE SOUZA on 10/01/18 ([id number])
[2018-10-01] MEDS: CALCIUM 500 + VIT D 200 MG TABLET PO SCH (09:18)
[2018-10-01] MEDS: NORVASC PO SCH (09:18)
[2018-10-01] MEDS: ZITHROMAX PO SCH (09:19)
[2018-10-01] MEDS: LIBRIUM PO SCH (09:20)
[2018-10-01] MEDS: BENICAR PO SCH (09:20)
[2018-10-01] MEDS: LOVENOX SUBCUT SCH (09:21)
[2018-10-01] MEDS: BYSTOLIC PO SCH (09:21)
--- NOTE | 2018-10-01 09:26 | PN ---
DATE OF SERVICE: 09/29/18 SUBJECTIVE: 78-year-old white female was hospitalized with cough, congestion and wheezing. The patient was seen and examined in the emergency room by Dr. Galvin. Further workup revealed that the patient has possibility of atelectasis or pneumonia by CT scan. CT angiogram was done to rule out any pulmonary embolism as the patient 's D. dimer was elevated. PHYSICAL EXAMINATION: HEENT: Head normocephalic, atraumatic. Eyes: Extraocular muscles are intact. Pupils are equal, round and reactive to light and accommodation. Ears: No lesions. Nose appeared normal. Throat: No exudate or erythema. NECK: Supple. No JVD, no carotid bruit. No lymphadenopathy or thyromegaly. LUNGS: Bilateral wheeze. Clear to auscultation. Percussion note normal. Chest symmetrical. HEART: S1, S2, no S3. No murmurs. No cyanosis or clubbing. No ascites. Pulses: Dorsalis pedis and posterior tibial pulses +1 to +2 bilaterally. ABDOMEN: Soft. Nontender. Bowel sounds active. No CVA tenderness. No mass felt. EXTREMITIES: No pedal edema. Full range of motion of all extremities, equal. NEUROLOGIC: No focal deficit. Cranial nerves II through XII are grossly intact. No headache, no double vision or headache. SKIN: Not dry. Intact. Turgor - normal. LYMPHATIC: No palpable lymph nodes/no lymphedema. MUSCULOSKELETAL: Normal joints with no swelling. Muscle tone is normal. LABS: Arterial blood gases showed p02 of 62 with pc02 of 38, normal pH and oxygen saturation more than 90%. ASSESSMENT: The patient is a nonsmoker, has history of asthma, emphysema. PLAN: 1. Give patient double antibiotics, Rocephin, Zithromax along with steroids, IV fluids, nebs treatment. 2. The patient's abnormal lab finding. Creatinine is normal 0.9 with BUN of 90. It is hard to explain. BUN was again repeated which showed 89. 3. She will be given IV fluids and kidney functions will be monitored. CONDITION: Stable. TIME SPENT: More than 30 minutes. Plan and coordination of the patient's care discussed in the presence of nurse. EUNICE
--- NOTE | 2018-10-01 12:23 | CM.DICTOOL ---
ADMISSION: 09/29/18 19:33 DISCHARGE: OCTOBER 01, 2018 DATE OF SERVICE: 10/01/18 FINAL DIAGNOSIS ACUTE BRONCHITIS BIBASILAR PNEUMONIA PLEURITIC CHEST PAIN HYPERTENSION COPD HYPOTHYROID ANXIETY GERD FORMER SMOKER LUMPECTOMY, RIGHT BREAST TKR, RIGHT LAST VITALS Temp Pulse Resp BP Pulse Ox 97.6 F 73 19 143/79 H 96 10/01/18 04:44 10/01/18 04:44 10/01/18 04:44 10/01/18 04:44 10/01/18 04:44 TAKE THESE MEDICATIONS AT HOME Albuterol Nebs Ipratropium 1 vial NEB RTQID [facility] Last Admin: 10/01/18 10:02 Dose: 1 vial Leanne (Amlodipine/Olmesartan) 5-40 PO DAILY (Norvasc) 5 mg PO DAILY [facility] Calcium/Vitamin D (Calcium 500 + Vit D 200 Mg Tablet) 1 each PO DAILY [facility] Last Admin: 10/01/18 09:18 Dose: 1 each Chlordiazepoxide HCl (Librium) 10 mg PO BID [facility] Last Admin: 10/01/18 09:20 Dose: 10 mg Levothyroxine Sodium (Synthroid) 25 mcg PO QDAC [facility] Last Admin: 10/01/18 05:45 Dose: 25 mcg Nebivolol (Bystolic) 2.5 mg PO DAILY [facility] Last Admin: 10/01/18 09:21 Dose: 2.5 mg Prednisone (Prednisone) 20 mg PO DAILYWM [facility] For 5 Days Keflex 500 mg TID for 5 days ALLERGIES Latex, Natural Rubber Adverse Reaction (Verified 09/01/17 12:22) DISCONTINUED MEDICATIONS Azithromycin NEW PRESCRIPTIONS: Prednisone 20 mg daily for 5 days Take with food Keflex 500 mg TID for 5 days Albuterol 0.083% 1 nebulizer treatment QID SMOKING: NOT APPLICABLE DISEASE SPECIFIC EDUCATION: BRONCHITIS USE OF NEBULIZER TREATMENTS USE OF ORAL STEROIDS AND RISK OF GI UPSET, BONE DEMINERALIZATION LAB REVIEW: 10/01/18 04:50 10/01/18 04:50 10/01/18 04:50: Sodium 135.9, Potassium 4.42, Chloride 103.6, Carbon Dioxide 23.2, Anion Gap 13.52, BUN 16.7, Creatinine 0.59 L, Estimated GFR (MDRD) 99.00, BUN/Creatinine Ratio 28.30, Glucose 131.4 H, Calcium 8.64, Total Bilirubin 0.14 L, AST 31.4, ALT 21.5, Alkaline Phosphatase 116.4, Total Protein 6.56, Albumin 3.44 L, Globulin 3.12, Albumin/Globulin Ratio 1.10 10/01/18 04:50: WBC 5.37, RBC 3.73 L, Hgb 11.9 L, Hct 35.6 L, MCV 95.4, MCH 31.9 H, MCHC 33.4, RDW Coeff of Agustín 12.6, Plt Count 91 L, Immature Gran % (Auto ) 0.2, Neut % (Auto) 82.3, Lymph % (Auto) 12.7, Bradford % (Auto) 4.8, Eos % (Auto) 0.0, Baso % (Auto) 0.0, Immature Gran # (Auto) 0.0, Neut # (Auto) 4.1, Lymph # ( Auto) 0.6, Bradford # (Auto) 0.2 L, Eos # (Auto) 0.0, Baso # (Auto) 0.0, Neutrophils % (Manual) 83.0 H, Lymphocytes % (Manual) 11.0, Monocytes % (Manual ) 4.0, Metamyelocytes % 2.0, Anisocytosis Not present 10/01/18 04:24: Puncture Site Rb, O2 Saturation 91.0 L, ABG pH 7.352, ABG pCO2 40.8, ABG pO2 64.0 L, ABG HCO3 22.6, ABG Total CO2 24, ABG Base Excess -3 L, Bobby Test +, FiO2 % 21.0 PLAN: DISCHARGE HOME DIET: REGULAR TOLERATED ACTIVITY: GRADUALLY RESUME TOLERATED AN APPOINTMENT IS SCHEDULED WITH DR. DE SOUZA ON October AT 11:45 AM A NEBULIZER HAS BEEN PRESCRIBED TO USE AT LEAST 4 TIMES A DAY. [facility] HAS BEEN CALLED TO SUPPLY NEBULIZER. CODE STATUS: FULL CODE REQUESTED BY PATIENT MS. SHAHID IS ALERT AND ORIENTED X 3. MS. SHAHID IS AGREEABLE TO DISCHARGE PLANS DISCUSSED BY DR. DE SOUZA THIS MORNING. SHE LIVES ALONE AND IS INDEPENDENT WITH ALL ACTIVITIES OF DAILY LIVING. SHE IS AMBULATORY IN THE HALLWAY WITHOUT STAFF ASSISTANCE. GAIT IS STEADY WITHOUT USE OF AN ASSISTIVE DEVICE. MEAL INTAKES ARE GOOD AT 100%. MS. SHAHID IS CONTINENT OF BOWEL AND BLADDER. SKIN IS IN GOOD CONDITION AND FREE OF OPEN WOUNDS, RASHES OR IRRITATION. A NEBULIZER HAS BEEN PRESCRIBED AND [facility] LATONIA DE SOUZA MD CIPRIANO GRANADOS APRN
--- NOTE | 2018-10-01 12:58 | PN ---
DATE OF SERVICE: 09/30/18 SUBJECTIVE: 78-year-old white female hospitalized with pleuritic type of pain with early pneumonia and bronchitis. It very likely started from inhalation of the fumes as she was burning the trash. The patient has no history of asthma or COPD. The patient is feeling a lot better. REVIEW OF SYSTEMS: CONSTITUTIONAL: No night sweats. No fatigue, malaise, lethargy. No fever or chills. HEENT: Eyes: No visual changes. No eye pain. No eye discharge. ENT: No runny nose. No epistaxis. No sinus pain. No sore throat. No odynophagia. No congestion. RESPIRATORY: No cough, no congestion. No hemoptysis. No shortness of breath. CARDIOVASCULAR: No angina symptoms. No CHF symptoms. No atypical chest pain for CAD. No palpitations. No PND. No orthopnea. GASTROINTESTINAL: No abdominal pain. No nausea or vomiting. No diarrhea or constipation. No hematemesis. No hematochezia. GENITOURINARY: No urgency. No frequency. No dysuria. No hematuria. No obstructive symptoms. No discharge. No pain. No significant abnormal bleeding. MUSCULOSKELETAL: No musculoskeletal pain; no joint swelling. NEUROLOGICAL: No headache. No neck pain. No syncope. No seizures. No dizziness. PSYCHIATRIC: Not anxious. No depression. No suicidal thoughts. No homicidal thoughts. SKIN: No rash. No lesions. No wounds. ENDOCRINE: No unexplained weight loss. No weight gain. HEMATOLOGIC/LYMPHATIC: No anemia. No purpura. No petechiae. No prolonged or excessive bleeding. No palpable lymph nodes. PHYSICAL EXAMINATION: VITAL SIGNS: Temperature 97.2, pulse 72, respiratory rate 20, BP 123/70, pulse ox 99%. HEENT: Head normocephalic, atraumatic. Eyes: Extraocular muscles are intact. Pupils are equal, round and reactive to light and accommodation. Ears: No lesions. Nose appeared normal. Throat: No exudate or erythema. NECK: Supple. No JVD, no carotid bruit. No lymphadenopathy or thyromegaly. LUNGS: Decreased breath sounds with practically no wheeze. Good air entry. Clear to auscultation. Percussion note normal. Chest symmetrical. HEART: S1, S2, no S3. No murmurs. No cyanosis or clubbing. No ascites. Pulses: Dorsalis pedis and posterior tibial pulses +1 to +2 bilaterally. ABDOMEN: Soft. Nontender. Bowel sounds active. No CVA tenderness. No mass felt. EXTREMITIES: No edema. Full range of motion of all extremities, equal. NEUROLOGIC: No focal deficit. Cranial nerves II through XII are grossly intact. No headache, no double vision or headache. SKIN: Not dry. Intact. Turgor - normal. LYMPHATIC: No palpable lymph nodes/no lymphedema. MUSCULOSKELETAL: Normal joints with no swelling. Muscle tone is normal. ASSESSMENT: 1. ACUTE BRONCHITIS SEEMS TO BE RESOLVING. 2. ACUTE PLEURITIC PAIN A LOT BETTER. 3. BLOOD PRESSURE UNDER CONTROL. 4. ANEMIA CHRONIC. 5. HYPERGLYCEMIA FROM STEROIDS. PLAN: 1. Continue steroids, antibiotics and nebs. 2. The patient may need echocardiogram because BNP is high and shortness of breath and patient felt she was feeling up with fluid which I think she was choking. Will evaluate LV function. The patient has history of severe hypertension anyway so will tell us about the LV function with LA cavity and valvular structures. The patient has 1/6 systolic murmur. CONDITION: Stable. TIME SPENT: More than 30 minutes. Plan and coordination of the patient's care discussed in the presence of nurse. EUNICE
[2018-10-01 14:11] VITALS: BP 116/72; TEMP 9708
--- NOTE | 2018-10-01 14:36 | HP ---
DATE OF SERVICE: 09/29/18 REASON FOR HOSPITALIZATION/HISTORY OF PRESENT ILLNESS: She presents to the emergency room. She walked in complaining of cough and congestion. She had been called out antibiotics and a steroid but still was complaining of shortness of breath and now diarrhea. PAST MEDICAL HISTORY: B12 deficiency Thrombocytopenia History of Rheumatic fever Dyslipidemia History of Lyme disease Hypertension Hypothyroidism Cervical osteoarthritis PAST SURGICAL HISTORY: Total knee replacement on the right, 2006 REVIEW OF SYSTEMS: CONSTITUTIONAL: No night sweats. No fatigue, malaise, lethargy. No fever or chills. HEENT: Eyes: No visual changes. No eye pain. No eye discharge. ENT: No runny nose. No epistaxis. No sinus pain. No sore throat. No odynophagia. No ear pain. No congestion. RESPIRATORY: Cough, no congestion. No hemoptysis. Shortness of breath. Wheezing. CARDIOVASCULAR: No angina symptoms. No CHF symptoms. No atypical chest pain for CAD. No palpitations. No PND. No orthopnea. GASTROINTESTINAL: No abdominal pain. No nausea or vomiting. Diarrhea. No hematemesis. No hematochezia. GENITOURINARY: No urgency. No frequency. No dysuria. No hematuria. No obstructive symptoms. No discharge. No pain. No significant abnormal bleeding. MUSCULOSKELETAL: No musculoskeletal pain. No joint swelling. No arthritis. NEUROLOGICAL: No headache. No neck pain. No syncope. No seizures. No dizziness. PSYCHIATRIC: Not anxious. No depression. No suicidal thoughts. No homicidal thoughts. SKIN: No rash. No lesions. No wounds. ENDOCRINE: No unexplained weight loss. No weight gain. HEMATOLOGIC/LYMPHATIC: No anemia. No purpura. No petechiae. No prolonged or excessive bleeding. No palpable lymph nodes. PERSONAL/FAMILY/SOCIAL HISTORY: The patient is a nonsmoker. No alcohol or illicit drug use. She is and lives alone. Performs all ADL's. MEDICATIONS: Os-Fran 500+D3 one each PO daily Leanne 5-40mg one each PO daily Prednisone 10mg PO twice a day Bystolic 2.5mg Po daily Azithromycin 250mg Po daily Synthroid 25mcg PO daily Chlordiazepoxide 10mg PO Twice a day ALLERGIES: Latex Natural rubber PHYSICAL EXAMINATION: GENERAL: The patient is VITAL SIGNS: Temperature 100.3, heart rate 78, respiratory rate 20, blood pressure 131/78, pulse ox 95%. HEENT: Head normocephalic, atraumatic. Eyes: Extraocular muscles are intact. Pupils are equal, round and reactive to light and accommodation. Ears: No lesions. Nose appeared normal. Throat: No exudate or erythema. NECK: Supple. No JVD, no carotid bruit. No lymphadenopathy or thyromegaly. LUNGS: Diminished breath sounds bilaterally. Mild respiratory distress. Clear to auscultation. Percussion note normal. Chest symmetrical. HEART: S1, S2, no S3. No murmurs. No cyanosis or clubbing. No ascites. Pulses: Dorsalis pedis and posterior tibial pulses +1 to +2 bilaterally. ABDOMEN: Soft. Nontender. Bowel sounds active. No CVA tenderness. No mass felt. EXTREMITIES: No edema. Full range of motion of all extremities, equal. NEUROLOGIC: No focal deficit. Cranial nerves II through XII are grossly intact. No headache, no double vision or headache. SKIN: Not dry. Intact. Turgor - normal. LYMPHATIC: No palpable lymph nodes/no lymphedema. MUSCULOSKELETAL: Normal joints with no swelling. Muscle tone is normal. LABS: WBC 4.25, hgb 13.2, hct 39.6, plt count 94,000, sodium 132.5, potassium 3.9, BUN 89, creatinine 0.7, Gluocse 108, ABG on room air O2 93, pH 7.43, pCO2 35, pO2 63, Bicarb 23.2, total CO2 24, total protein 8.03, albumin 4.4, troponin less than 0.01, CK -MB 3.75, AST 50, ALT 25, Lactic acid 0.74, BNP 1,370. Chest x-ray shows no acute pulmonary disease, CTA of the chest mild basilar atelectasis versus pneumonia, no pneumothorax. No PE. ASSESSMENT: 1. Acute basilar pneumonia 2. Shortness of breath 3. Dehydration PLAN: 1. We will admit 2. Routine telemetry 3. CBC and CMP daily 4. Continue home medications 5. Start on Zithromax 500mg PO daily times three days 6. Solu-Medrol 125mg IV Q 8 hours 7. Xopenex NEB treatment three times a day scheduled 8. Rocephin 1 gram IV daily 9. Normal saline IV at 100cc an hour 10.The patient is on a regular diet 11.Continue home medications 12.Sputum for culture 13.Oxygen at 1-2 liters as needed Will follow closely. TIME SPENT: More than 70 minutes. MTDD
--- NOTE | 2018-10-01 15:56 | US ---
EXAM: Carotid ultrasound HISTORY: Hypertension, irregular heart rate COMPARISON: None TECHNIQUE: Carotid ultrasound was performed using Duplex imaging with aguilar scale, color, and Doppler imaging performed. FINDINGS: Right carotid: There is atherosclerotic plaque in the common carotid and bulb/internal carotid arter y. Peak systolic velocity measurement in the right internal carotid artery is 0.89 meters per second . End-diastolic velocity measurement in the right internal carotid artery is 0.15 meters per second. Right internal to common carotid artery peak systolic velocity ratio is 1.0. Flow in the right alfredito tebral artery is antegrade. Left carotid: There is atherosclerotic plaque in the common carotid and bulb/internal carotid artery . Peak systolic velocity measurement in the left internal carotid artery is 0.69 meters per second. End-diastolic velocity measurement in the left internal carotid artery is 0.15 meters per second. L eft internal to common carotid artery peak systolic velocity ratio measures 0.8. Flow in the left ve rtebral artery is antegrade. IMPRESSION: 1. Right internal carotid: Peak systolic velocity corresponds with mild (less than 50%) stenosis. 2. Left internal carotid: Peak systolic velocity corresponds with mild (less than 50%) stenosis.
[2018-10-02] MEDS ORDERED: PREDNISONE PO SCH (08:00)
--- NOTE | 2018-10-02 08:59 | DS ---
DATE OF SERVICE: 10/01/18 FINAL DIAGNOSIS: 1. Acute bronchitis 2. Bibasilar pneumonia 3. Pleuritic chest pain 4. Hypertension 5. COPD 6. Hypothyroidism 7. Anxiety 8. GERD 9. Former smoker 10.Lumpectomy, right breast 11. Right total knee replacement 12. History of thrombocytopenia 13. B12 deficiency. 14. History of Lyme disease LAST VITALS: Temperature 97.6, pulse 73, respiratory rate 19, blood pressure 143/79 and pulse ox 96%. DISCHARGE INSTRUCTIONS: Discharge home. An appointment is scheduled with Dr. Blanc on October 08 at 11: 45am. A nebulizer has been prescribed to use at least four times a day. [facility] has been called to supply nebulizer. Code Status: Full code requested by patient. MEDICATIONS AT DISCHARGE: Albuterol NEB RT four times a day Norvasc 5mg PO daily Calcium 500+Vitamin D 200 one each PO daily Librium 10mg PO twice a day Synthroid 25mcg PO Four times a day Bystolic 2.5mg PO daily Prednisone 20mg PO daily NEAL for 5 days Keflex 500mg three times a day for 5 days. ALLERGIES: Latex Natural rubber DISCONTINUED MEDICATIONS: Azithromycin NEW PRESCRIPTIONS: Prednisone 20mg daily for 5 days, take with food Keflex 500mg three times a day for 5 days Albuterol 0.083% one nebulizer treatment four times a day DIET INSTRUCTIONS: Regular as tolerated ACTIVITY: Gradually resume as tolerated. SMOKING: N/A DISEASE SPECIFIC EDUCATION: Bronchitis Use of Nebulizer Treatment Use of oral steroids and risk of GI upset, bone demineralization HOSPITAL COURSE: Erik Lantigua was hospitalized through the emergency room with cough and congestion and wheezing with pleuritic type of pain. The patient has asthmatic bronchitis type of findings likely triggered by inhalation of fumes in her yard. She was exposed to it for a few hours. The patient was treated with IV steroids, antibiotics and NEBS treatment. Her condition improved. Initially she had PVC's likely triggered by her asthmatic bronchitis. The patient's rhythm settled down and the wheezing practically cleared up in 48 hours. Her lungs were clear. There was some evidence of bronchial pneumonia. She is going to be discharged on Keflex and steroids. The patient was treated with Rocephin and Zithromax. The patient will undergo echocardiogram as an outpatient and PFT. The patient's CT angiogram was negative for pulmonary embolism. Blood pressure was well controlled throughout the stay in the hospital. CONDITION: Stable. TIME SPENT: More than 60 minutes. MTDD
--- NOTE | 2018-10-02 09:00 | PN ---
09/29/18: Level 5 09/30/18: Intermediate 10/01/18: D as in discharge MTDD
== END 2018-10-01 14:20 | disposition home or self-care (01) | DRG 202 ==
LOC: ED 15:12 → MEDSURG B 19:33
PROVIDERS: ADMIT Internal Medicine; ATTEND Internal Medicine
DX: J40 Bronchitis, not specified as acute or chronic (principal); J18.1 Lobar pneumonia, unspecified organism; K21.9 Gastro-esophageal reflux disease without esophagitis; I10 Essential (primary) hypertension; J44.9 Chronic obstructive pulmonary disease, unspecified; E03.9 Hypothyroidism, unspecified; E53.8 Deficiency of other specified B group vitamins; E86.0 Dehydration; F41.9 Anxiety disorder, unspecified; R19.7 Diarrhea, unspecified; R05 Cough; R06.02 Shortness of breath; R06.2 Wheezing; R07.9 Chest pain, unspecified; R73.9 Hyperglycemia, unspecified
CPT/HCPCS: 36415; 80048; 80053; 82550; 82553; 82803; 83605; 83880; 84145; 84484; 85007; 85025; 85379; 87040; 93005; 93010; 94640; 96361; 96365; 96366; 96375; 99285

== ENCOUNTER 2018-10-03 06:07 | Outpatient (CLI) ==
--- NOTE | 2018-10-08 09:47 | ECHO2D ---
Date of Exam: 10/08/18 Ordering Physician: DR. LATONIA DE SOUZA Room #: OP Reason for Echo: SOB, ELEVATED BNP, HYPERTENSION M-Mode Normal Adult Results LV Dimensions Normal Adult Results AoV Opening excursions >1.6 >1.6 LVEDD-base- 3.5-5.8 4.6 Ao root dimensions 2.0-3.7 3.1 LVESD-base- 3.1-4.6 L. Atrium dimensions 1.9-3.8 5.8 Post. Wall thickness 0.8-1.1 1.3 IV septum (thickness) 0.7-1.2 1.2 Post. Wall excursion 0.72-1.3 NORMAL Septal motion NORMAL Systolic motion R. Ventricular cavity 1.5-2.0 NORMAL LVEF 60% 64% Paradoxical septal wall motion NORMAL 2-D : 2-D M Mode Echocardiogram was performed using apical four chamber and left parasternal long and short axis views. Mitral, tricuspid and aortic valves appear to be normal. Contractility of the left ventricle seems to be normal, so is the cavity size. Markedly Enlarged Left atrial cavity size. Aortic root appears to be normal. There is no pericardial effusion. There is no thrombus noted in the left ventricular or left aortic cavity. No mitral valve prolapse noted. M-MODE: MV: NORMAL AV: NORMAL TV: NORMAL PV: CHAMBER SIZE: ENLARGED LEFT ATRIAL CAVITY WALL MOTION: NORMAL PERICARDIUM: NORMAL INTERPRETATION: 1. LEFT VENTRICULAR HYPERTROPHY WITH MARKEDLY ENLARGED LEFT ATRIAL CAVITY 2. NORMAL VALVES 3. NORMAL LEFT VENTRICLE CONTRACTILITY MTDD
== END 2018-10-03 06:08 | disposition home or self-care (01) ==
LOC: CAR 06:07
PROVIDERS: ATTEND Internal Medicine
DX: R06.02 Shortness of breath (principal); R79.89 Other specified abnormal findings of blood chemistry